=== PATIENT | female | born 1945 | race Caucasian/White ===

== ENCOUNTER 2020-07-03 15:27 | Outpatient (CLI) | payer MEDICARE ==
--- NOTE | 2020-07-03 15:58 | RAD ---
TWO VIEW CHEST: 07/03/20 HISTORY: Cecal mass. Comparison made to a portable film from 2014. FINDINGS: There is scattered nodular densities seen throughout the left lung with the largest in the left lower lung field measuring 12 mm. Findings would be suspicious for metastatic disease in the lung. Recomme nd further evaluation with chest CT. No effusion or infiltrate. Vascular markings within normal range. Heart and mediastinum unremarkable. IMPRESSION: There is evidence of several nodules in the left lung with the largest measuring 12 mm. Findings woul d indicate pulmonary metastases. Recommend further evaluation with chest CT. POS: [facility]
== END 2020-07-03 15:28 | disposition home or self-care (01) ==
LOC: BICRAD 15:27
PROVIDERS: ATTEND Physician Assistant Medical
DX: K63.89 Other specified diseases of intestine (principal); R91.8 Other nonspecific abnormal finding of lung field
CPT/HCPCS: 71046